=== PATIENT | male | born 1995 | race Two or more races ===

== ENCOUNTER → 2022-01-19 | Emergency (ER) | payer OTHER ==
[~2022-01-19] VITALS: Ht 170.2 cm; Wt 89.8 kg
[~2022-01-19] MED LIST: GAS RELIEF125 MG; INTESTINEX680 M1; PEPCID AC20 MG; PROTONIX40 M1
== END | disposition left against medical advice (07) ==
LOC: ER 02:04
DX: Z53.21 Procedure and treatment not carried out due to patient leaving prior to being seen by health care provider (principal)